=== PATIENT | male | born 1935 | race Caucasian/White ===

== ENCOUNTER 2019-04-11 09:54 | Observation (INO) ==
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
[2019-04-11] MEDS ORDERED: 0.9 % Sodium Chloride 500 ML IVC ONE (10:23)
[2019-04-11] MEDS ORDERED: Isovue-370 500 ML BOTTLE IVP ONE (10:24)
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
[2019-04-11 10:55] LABS: Basophils % 1.3 %; Eosinophils # 0.1 K/mcL (0.0-0.6); Eosinophils % 2.8 %; Hematocrit 39.5 % (37.5-50.1); Hemoglobin 13.4 g/dL (12.9-16.9); Immature Granulocytes % 0.3 % (0-4); Lymphocytes # 0.6 K/mcL (0.6-4.6); Lymphocytes % 18.9 %; Mean Corpuscular HGB Conc 33.9 g/dL (31.6-35.5); Mean Corpuscular Hemoglobin 31.8 pg (28.0-33.3); Mean Corpuscular Volume 93.6 fL (83.0-100.0); Mean Platelet Volume 9.6 fL (9.4-12.4); Monocytes # 0.4 K/mcL (0.0-1.3); Monocytes % 11.3 %; Neutrophils # 2.1 K/mcL (1.6-8.9); Platelet Count 222 K/mcL (140-400); Red Blood Count 4.22 M/mcL (4.19-5.50); Red Cell Distribution Width 12.9 % (11.5-14.5); Segmented Neutrophils % 65.4 %
[2019-04-11 11:14] LABS: Alanine Aminotransferase 17 Units/L (7-52); Albumin 4.4 g/dL (3.5-5.7); Albumin/Globulin Ratio 1.9 (1.1-2.2); Alkaline Phosphatase 48 Units/L (34-104); Aspartate Amino Transferase 22 Units/L (13-39); BUN/Creatinine Ratio 16 (6-26); Bilirubin,Total 0.6 mg/dL (0.3-1.0); Blood Urea Nitrogen 14 mg/dL (8-23); Calcium 9.4 mg/dL (8.6-10.3); Carbon Dioxide 28 mEq/L (23-29); Chloride 102 mEq/L (98-107); Globulin 2.3 g/dL (2.4-3.5); Glucose 133 mg/dL (70-105); Osmolality,Calculated 286 (280-300); Potassium 4.3 mEq/L (3.5-5.1); Sodium 137 mEq/L (136-145); Total Protein 6.7 g/dL (6.4-8.9); eGFR For Non-African Americans > 60 (> 60)
[2019-04-11 11:27] LABS: Bilirubin,Urine Negative (Negative); Blood,Urine Negative (Negative); Clarity,Urine Clear (Clear); Color,Urine Yellow (Yellow); Glucose,Urine (UA) Normal (Normal); Ketones,Urine Negative (Negative); Leukocyte Esterase,Urine Negative (Negative); Nitrite,Urine Negative (Negative); Protein,Urine Negative (Neg-Trace); Specific Gravity,Urine 1.008 (1.010-1.025); Urobilinogen,Urine Normal (Normal)
[2019-04-11 11:33] LABS: Troponin I < 0.03 ng/mL (< 0.04)
[2019-04-11] MEDS ORDERED: Tdap (Boostrix) Vaccine 0.5 ML SYRINGE IM ONE (13:23)
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
[2019-04-11] MEDS ORDERED: Naloxone 0.4 MG/ML INJ IVP PRN (15:01)
[2019-04-12 06:51] LABS: Basophils % 0.8 %; Eosinophils % 0.8 %; Hematocrit 38.6 % (37.5-50.1); Hemoglobin 12.9 g/dL (12.9-16.9); Immature Granulocytes % 0.2 % (0-4); Lymphocytes # 0.6 K/mcL (0.6-4.6); Lymphocytes % 12.5 %; Mean Corpuscular HGB Conc 33.4 g/dL (31.6-35.5); Mean Corpuscular Hemoglobin 31.4 pg (28.0-33.3); Mean Corpuscular Volume 93.9 fL (83.0-100.0); Mean Platelet Volume 10.4 fL (9.4-12.4); Monocytes # 0.5 K/mcL (0.0-1.3); Monocytes % 9.5 %; Neutrophils # 3.6 K/mcL (1.6-8.9); Platelet Count 229 K/mcL (140-400); Red Blood Count 4.11 M/mcL (4.19-5.50); Red Cell Distribution Width 13.1 % (11.5-14.5); Segmented Neutrophils % 76.2 %
[2019-04-12 08:00] LABS: BUN/Creatinine Ratio 14 (6-26); Blood Urea Nitrogen 12 mg/dL (8-23); Calcium 9.5 mg/dL (8.6-10.3); Carbon Dioxide 28 mEq/L (23-29); Chloride 100 mEq/L (98-107); Glucose 121 mg/dL (70-105); Osmolality,Calculated 283 (280-300); Potassium 3.9 mEq/L (3.5-5.1); Sodium 136 mEq/L (136-145); eGFR For Non-African Americans > 60 (> 60)
[2019-04-12 08:14] LABS: Thyroid Stimulating Hormone 0.745 mcIU/mL (0.340-5.600)
--- NOTE | 2019-04-12 10:13 | Electrocardiograph Report ---
[address] [address] Test Date: 2019-04-11 Pat Name: Peyman Haq Department: [id number] Room: 3B16 Gender: M Sales Service Representative: : [id number] Requested By: Jack Jacques Order Number: [id number] Reading MD: Kaden Bruno Measurements Intervals [place] Rate: 83 P: 61 DC: 179 QRS: 57 QRSD: 85 T: 60 QT: 374 QTc: 440 Interpretive Statements Sinus rhythm Electronically Signed On 04-12-2019 10:12:20 EDT by Kaden Bruno
--- NOTE | 2019-04-12 11:37 | Internal Med Progress Note ---
Hospitalist Progress Note - Encounter Date of Encounter: 04/12/19 Time of Encounter: 11:37 - Subjective Interval History: Patient seen and examined this morning at bedside. No acute overnight events. Patient denies any chest pain lightheadedness dizziness palpitation. Denies any difficulty breathing abdominal pain or bowel or bladder complaints. Per nurse who spoke with daughter mentioned that his memory has decreased and that did not noticed some slurring of speech after the event at home. - Exam Vitals: Temp Pulse Resp BP Pulse Ox 97.6 F 85 18 150/71 96 04/12/19 10:54 04/12/19 10:54 04/12/19 10:54 04/12/19 10:54 04/12/19 10:54 Exam: General: In no acute distress. Respiratory exam: CTAB. no accessory muscle use, rales, rhonchi, wheezes Cardiovascular exam: RRR, +S1, +S2. no murmur, gallop, rubs. GI/Abdominal exam: Non-tender, Non-distended, normal bowel sounds, soft, no peritoneal signs. Extremities exam: no pedal edema, pulses palpable in b/l lower extremities. no calf tenderness Neurological exam: CN II-XII intact, AO X3, no focal deficits appreciated. Skin exam: No skin rash - Assessment and Plan (1) Syncope and collapse Current Visit: Yes Status: Acute (2) Right ear injury Current Visit: Yes Status: Acute - Summary of Assessment and Plan Summary of Assessment and Plan: Assessment Syncope ventricular escape rhytm, Possible Heart block, HTN Rt ear injury Plan - Orthostatic are normal and history does not fit. - TIA possible given information relayed to nurse by daughter. Will get MRI. f/u ECHO. However with HTN as only risk factor - tele with long pause and vent escape rhythm. Possible with heart block. Will consult cardiology - Time Spent with Patient Total time spent is greater than 50% in coordination of care (as documented) at patient's floor/unit and/or counseling patient: Internal Medicine: Result - Labs CBC & Chem 7: 04/12/19 02:42 04/12/19 07:06 Labs: Short CBC 04/12/19 Range/Units 02:42 WBC 4.7 (4.3-11.1) K/mcL Hgb 12.9 (12.9-16.9) g/dL Hct 38.6 (37.5-50.1) % Plt Count 229 (140-400) K/mcL Neutrophils # 3.6 (1.6-8.9) K/mcL BMP 04/12/19 07:06 Sodium 136 Potassium 3.9 Chloride 100 Carbon Dioxide 28 BUN 12 Creatinine 0.87 Glucose 121 H Calcium 9.5 Cardiac Enzymes 04/11/19 Range/Units 17:47 Troponin I < 0.03 (< 0.04) ng/mL - Impressions Impressions Angiography CT 04/11/19 10:24 IMPRESSION: Unremarkable CTA of the head and neck. No acute intracranial abnormality. D/ : / 04/11/2019 13:16:28 Chandan Kumar MD / Terrie Baez Interpreting Provider: Chandan Kumar MD Neck CTA 04/11/19 10:24 IMPRESSION: Unremarkable CTA of the head and neck. No acute intracranial abnormality. D/ /11/2019 13:16:28 Chandan Kumar MD / Terrie Baez Interpreting Provider: Chandan Kumar MD Consult Discharge Plan - Plan [facility]errals[facility] Provider[facility] - 04/20/19 11:30 am __ (2) Right ear injury Qualifiers: Encounter type: initial encounter Qualified Code(s): S09.91XA - Unspecified injury of ear, initial encounter
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
--- NOTE | 2019-04-12 14:39 | Electrocardiograph Report ---
[address] [address] Test Date: 2019-04-12 Pat Name: Peyman Haq Department: 113 Room: 3B16 Gender: M Title I Math Tutor: : 1935 Requested By: Que Westbrook Order Number: [id number] Reading MD: Kaden Bruno Measurements Intervals [place] Rate: 86 P: 69 MS: 190 QRS: 60 QRSD: 88 T: 63 QT: 354 QTc: 398 Interpretive Statements SINUS RHYTHM Electronically Signed On 04-12-2019 14:37:52 EDT by Kaedn Bruno
--- NOTE | 2019-04-13 12:28 | Internal Med Progress Note ---
Hospitalist Progress Note - Encounter Date of Encounter: 04/13/19 Time of Encounter: 10:21 - Subjective Interval History: Patient seen and examined this morning at bedside. No acute overnight events. No telemetry events overnight. However it appears patient was not on CPAP overnight. Denies any chest pain, shortness of breath, lightheadedness or any further syncopal episodes. Denies any bowel or bladder complaints. - Exam Vitals: Temp Pulse Resp BP Pulse Ox 97.7 F 87 17 164/89 97 04/13/19 10:29 04/13/19 10:29 04/13/19 10:29 04/13/19 10:29 04/13/19 10:29 Exam: General: In no acute distress. Respiratory exam: CTAB. no accessory muscle use, rales, rhonchi, wheezes Cardiovascular exam: RRR, +S1, +S2. no murmur, gallop, rubs. GI/Abdominal exam: Non-tender, Non-distended, soft, no peritoneal signs. Extremities exam: no pedal edema, pulses palpable in b/l lower extremities. no calf tenderness Neurological exam: CN II-XII intact, AO X3, no focal deficits appreciated. Skin exam: No skin rash - Assessment and Plan (1) Syncope and collapse Current Visit: Yes Status: Acute (2) Right ear injury Current Visit: Yes Status: Acute - Summary of Assessment and Plan Summary of Assessment and Plan: Assessment Syncope Nocturanl bradycardia, sinus pause, junctional rhytm HTN Rt ear injury Plan - No further syncopal events. Possible vasovagal, however with significant nocturnal bradycardia, sinus pause and junctional rhythm per cardiology. - MRI unremarkable. CT angio head and neck unremarkable. ECHO with EF 60-65%, Normal LV function, mil pul regurgitation, NWM. - To get CPAP put in today and continue tele monitor as sleep apnea possible etiology of arrhythmia. - Time Spent with Patient Total time spent is greater than 50% in coordination of care (as documented) at patient's floor/unit and/or counseling patient: Internal Medicine: Result - Labs CBC & Chem 7: 04/12/19 02:42 04/12/19 07:06 - Impressions Impressions Brain MRI 04/12/19 12:16 IMPRESSION: 1. No acute intracranial abnormality. Specifically, no acute infarction. 2. Mild parenchymal volume loss and sequela of mild chronic microvascular ischemic changes. D/ / Katie Veronica MD / Katie Veronica MD Interpreting Provider: Katie Veronica MD Echocardiogram 04/12/19 15:20 Impressions: LVEF 60-65%. Mild left ventricular diastolic dysfunction. Normal right ventricular structure and function. Mild pulmonic regurgitation. Unable to estimate RVSP due to lack of TR jet. Left Ventricular Wall Motion: Rest Echo Findings All wall segments showed normal motion. Findings: Study Quality * Technically adequate exam. ECG Findings * Normal sinus rhythm. Left Ventricle * LVEF 60-65%. * Normal LV chamber size, wall thickness and systolic function. * Mild left ventricular diastolic dysfunction. Right Ventricle * Normal right ventricular structure and function. Left Atrium * Normal left atrial size. Right Atrium * Normal right atrial size. Interatrial Septum * Interatrial septum not well evaluated. Aortic Valve * Trileaflet aortic valve. * Mildly calcified aortic valve leaflets. * No aortic stenosis. * No aortic regurgitation. Mitral Valve * Normal mitral valve structure. * No mitral stenosis. * Trace mitral regurgitation. Tricuspid Valve * Normal tricuspid valve structure. * No tricuspid stenosis. * Trace tricuspid regurgitation. * Unable to estimate RVSP due to lack of TR jet. Pulmonic Valve * Pulmonic valve is not well visualized. * No pulmonic stenosis. * Mild pulmonic regurgitation. Aorta * Normally sized aortic root. Pericardium * The pericardium appears normal. IVC * The IVC is not well evaluated. Consult Discharge Plan - Plan [facility]errals: [facility] [Primary Care Provider[facility] - 04/20/19 11:30 am (2) Right ear injury Qualifiers: Encounter type: initial encounter Qualified Code(s): S09.91XA - Unspecified injury of ear, initial encounter
--- NOTE | 2019-04-13 12:31 | Cardiology Progress Note ---
Date of Encounter: 04/13/19 Time of Encounter: 09:45 Assessment and Plan (1) Syncope Current Visit: Yes Status: Acute Per cardiology: -Admitted with syncope. -Symptoms appear to be vasovagal. -TTE with LVEF preserved, no wall motion abnormalities. -MRI brain pending. -No day time telemetry events. -Recommend adequate hydration. -Suspect symptoms vasovagal. Qualifiers: Syncope type: vasovagal syncope Qualified Code(s): R55 - Syncope and collapse (2) Sinus pause Current Visit: Yes Status: Acute Per cardiology: -Nocturnal bradycardia, sinus pauses, and junctional escape rhythm. -Longest pause 10 seconds overnight 04/12/19. No significant pauses overnight. -Denies history of sleep apnea, unknown snoring. -Patient was ordered for CPAP, however was not placed last night. Discussed with respiratory, will place CPAP tonight. -Recommend CPAP tonight, if no significant pauses overnight with CPAP, cardiology will sign off. -Continuous telemetry. -Will order 48 hour holter monitor at discharge. Discussion w patient/family: The assessment and plan as outlined above was discussed with the patient who expressed understanding and agreement. All questions were answered. Thank you for involving us in the care of your patient. Please call with any questions. Discussed and reviewed with Subjective Principal diagnosis: Syncope Interval history: Patient denies dizziness, lightheadedness. Denies syncope or near syncope. Objective Vital Signs, Last 4 Hours Temp Pulse Resp BP Pulse Ox 04/13/19 10:29 97.7 F 87 17 164/89 97 General: Conversant, No Apparent Distress HEENT: Atraumatic, Normocephaly, Mucus Membranes Moist Neck: No JVD, Normal carotid pulses Cardiac: Reg Rate and Rhythm, Normal S1 and S2, No Murmur Lungs: Normal Breath Sounds, No Wheeze, Rales, Rhonchi Neuro: Alert and responsive, No focal deficits noted Abdomen: Soft, Non-Tender Skin: No rashes noted on visualized skin Musculoskeletal: No Chest Wall Tenderness Extremities: No Clubbing, No Cyanosis, No Edema, Normal Pulses Results 04/12/19 02:42 04/12/19 07:06 Impressions Brain MRI 04/12/19 12:16 IMPRESSION: 1. No acute intracranial abnormality. Specifically, no acute infarction. 2. Mild parenchymal volume loss and sequela of mild chronic microvascular ischemic changes. D/ / Katie Veronica MD / Katie Veronica MD Interpreting Provider: Katie Veronica MD Echocardiogram 04/12/19 15:20 Impressions: LVEF 60-65%. Mild left ventricular diastolic dysfunction. Normal right ventricular structure and function. Mild pulmonic regurgitation. Unable to estimate RVSP due to lack of TR jet. Left Ventricular Wall Motion: Rest Echo Findings All wall segments showed normal motion. Findings: Study Quality * Technically adequate exam. ECG Findings * Normal sinus rhythm. Left Ventricle * LVEF 60-65%. * Normal LV chamber size, wall thickness and systolic function. * Mild left ventricular diastolic dysfunction. Right Ventricle * Normal right ventricular structure and function. Left Atrium * Normal left atrial size. Right Atrium * Normal right atrial size. Interatrial Septum * Interatrial septum not well evaluated. Aortic Valve * Trileaflet aortic valve. * Mildly calcified aortic valve leaflets. * No aortic stenosis. * No aortic regurgitation. Mitral Valve * Normal mitral valve structure. * No mitral stenosis. * Trace mitral regurgitation. Tricuspid Valve * Normal tricuspid valve structure. * No tricuspid stenosis. * Trace tricuspid regurgitation. * Unable to estimate RVSP due to lack of TR jet. Pulmonic Valve * Pulmonic valve is not well visualized. * No pulmonic stenosis. * Mild pulmonic regurgitation. Aorta * Normally sized aortic root. Pericardium * The pericardium appears normal. IVC * The IVC is not well evaluated. Active Medications Naloxone HCl (Narcan) 0.4 mg IVP Q2MPRN PRN PRN Reason: SEE COMMENTS Stop: 10/11/19 15:02 - Imaging and Cardiology Chest Xray: report reviewed Echo: report reviewed - EKG Interpretation EKG results cardiology: other (Telemetry reviewed with average HR previous 12 hours noted to be 74, SR. PVCs, PACs noted. No signifcant pauses noted overnight.) Consult Discharge Plan - Plan [facility]errals: [facility] [Primary Care Provider[facility] - 04/20/19 11:30 am
--- NOTE | 2019-04-14 10:36 | Event Note ---
Date of Encounter: 04/14/19 Time of Encounter: 10:35 - Cardiology Event Note 12 hr tele AVG HR 80, SR, no significant pauses noted. 48 hr holter ordered at d/c. Will coordinate outpt follow-up in 2-3 weeks. Cardiology signing off. Reconsult PRN.
--- NOTE | 2019-04-14 11:41 | Discharge Summary ---
- NOTES TO OUTPATIENT PROVIDER Notes to Outpatient Provider: Patient will need follow-up with cardiology. Discharged with a Holter monitor. Consider getting sleep apnea study. Orders not resulted at time of discharge: Pending orders 04/13/19 12:38 ECG 48 holter monitor setup [ECG] Routine Date of Encounter: 04/14/19 Time of Encounter: 11:39 - Discharge Diagnosis (1) Syncope and collapse Priority: Primary Status: Acute (2) Right ear injury Priority: Secondary Status: Acute Qualifiers: Encounter type: initial encounter Qualified Code(s): S09.91XA - Unspecified injury of ear, initial encounter (3) HTN (hypertension) Priority: Secondary Status: Acute Qualifiers: Qualified Code(s): I10 - Essential (primary) hypertension (4) Junctional bradycardia Priority: Primary Status: Acute (5) Sinus pause Priority: Primary Status: Acute Hospital course: Mr. Haq is a 83 year old male past medical history of hypertension, vocal cord cancer came in with complain of 2 syncopal episodes. Patient was found to have significant sinus process, junctional rhythm and nocturnal bradycardia during his first 8. MRI and CT angiogram of head and neck were negative or any acute stroke or other acute abnormality. Patient had CPAP put in overnight however he could not tolerate beyond 2 hours. No further telemetry event were noticed. His orthostatics were unremarkable. Echocardiogram showed EF of 60- 65, mild diastolic dysfunction, mild pulmonary regurgitation, normal right ventricular function and no wall motion abnormality. Patient was seen by cardiology who felt could be vasovagal however given telemetry findings patient will be discharged with a Holter monitor for 48 hours and would follow with cardiology as outpatient. Sleep apnea could possibly contribute to the a rrhythmias however needs sleep study which we will defer to outpatient as patient otherwise stable and does not need hospitalization. We will discharged to follow with PCP and cardiology as outpatient. I asked not to drive until cleared. Discharge discussed with: patient, nurse, social work - Time Spent with Patient Total time spent providing and/or coordinating discharge services: Time spent: Greater than 30 minutes (40) - Discharge Medications Prescriptions: Continued Omeprazole [PriLOSEC] 20 mg PO DAILY Losartan [Cozaar] 25 mg PO BID Discontinued Ibuprofen [Advil] 200 mg PO Q6H PRN PRN Reason: Pain Home Medications: Losartan [Cozaar] 25 mg PO BID 04/12/19 [History] Omeprazole [PriLOSEC] 20 mg PO DAILY 04/12/19 [History] Allergies/Adverse Reactions: Allergy/AdvReac Type Severity Reaction Status Date / Time No Known Allergies Allergy Verified 04/11/19 09:58 Date of admission: 04/11/19 15:19 Primary care physician: PCP LEVAR Consults: 04/12/19 11:48 Consult to Cardiology [CONS] Routine Comment: Consulting Provider: Cardiology Stephanie Reason for Consult: syncope Call Completed: Yes Discharging clinician: Jigar Patel - Constitutional Vitals: Temp Pulse Resp BP Pulse Ox 97.8 F 75 17 138/83 98 04/14/19 11:15 04/14/19 11:15 04/14/19 11:15 04/14/19 11:15 04/14/19 11:15 Exam: General: In no acute distress. Respiratory exam: CTAB. no accessory muscle use, rales, rhonchi, wheezes Cardiovascular exam: RRR, +S1, +S2. no murmur, gallop, rubs. GI/Abdominal exam: Non-tender, Non-distended, soft, no peritoneal signs. Extremities exam: no pedal edema, Neurological exam: CN II-XII intact, AO X3, no focal deficits appreciated. Skin exam: No skin rash - Patient Status Disposition: Home, Self-Care Condition: Fair - Discharge Instructions Follow Up With: L[facility]AR,PCP [Primary Care Provider] - 04/20/19 11:30 am - Diet and Activity Activity: increase activity as tolerated (do not drive until cleared by pcp and cardiology)
[2019-04-14 15:56] VITALS: BP 153/80
== END 2019-04-14 16:07 | disposition home or self-care (01) ==
LOC: 3BNU 09:54 → EMEROOARM 09:54 → SUATTDRO 15:19 → 3BNU 17:15
PROVIDERS: ADMIT Internal Medicine Nephrology; ATTEND Internal Medicine